=== PATIENT | male | born 1940 | race Caucasian/White ===

== ENCOUNTER 2018-09-21 18:54 | Inpatient (IN) | payer MEDICARE, MEDICAID | END 2018-09-27 12:00 | disposition E | LOC: ER 18:54 → ED HOLD 22:45 → ORTHO 4S 09-22 07:45 | DX: K70.11 Alcoholic hepatitis with ascites (principal); E43 Unspecified severe protein-calorie malnutrition; I46.9 Cardiac arrest, cause unspecified; N17.9 Acute kidney failure, unspecified; N39.0 Urinary tract infection, site not specified; R62.7 Adult failure to thrive; F10.20 Alcohol dependence, uncomplicated; E87.6 Hypokalemia; I48.91 Unspecified atrial fibrillation; G62.9 Polyneuropathy, unspecified; J44.9 Chronic obstructive pulmonary disease, unspecified ==